=== PATIENT | female | born 1960 | race Caucasian/White ===

== ENCOUNTER 2022-06-10 08:04 | Emergency (ER) | payer BC, SELFPAY ==
--- NOTE | 2022-06-10 08:09 | ED.GENADULT ---
HPI - General Adult General Chief complaint: Extremity Problem,Nontraumatic Stated complaint: rt thigh pain Time Seen by Provider: 06/10/22 08:08 Source: patient Mode of arrival: ambulatory Limitations: no limitations History of Present Illness HPI narrative: 61-year-old female patient presents to the [facility] with complaints of right leg pain for the past week. Patient denies any recent falls or trauma to the leg that she is aware of. Patient states she has been taking ibuprofen and Tylenol for the pain. Patient rates her pain 9/10 at this time. Patient states this all mostly to the right upper thigh area. Patient states the pain is worse when she is trying to sleep at night Related Data Home Medications Medication Instructions Recorded Confirmed hydrochlorothiazide 12.5 mg capsule 12.5 mg PO DAILY 06/10/22 06/10/22 liraglutide (weight loss) 3 mg/0.5 3 mg subcut WEEKLY 06/10/22 06/10/22 mL (18 mg/3 mL) subcut pen injector (Saxenda) omeprazole 40 mg capsule,delayed 40 mg PO DAILY 06/10/22 06/10/22 release Allergies Allergy/AdvReac Type Severity Reaction Status Date / Time lisinopril Allergy Mild cough Verified 06/10/22 08:32 penicillin V Allergy Mild rash Verified 06/10/22 08:32 Review of Systems Review of Systems: CONSTITUTIONAL: Denies fever, chills, or sweats. EYES: Denies visual changes, redness, or discharge. ENT: Denies rhinorrhea, congestion, sore throat, or otalgia. CARDIOVASCULAR: Denies chest pain, palpitations, or edema. RESPIRATORY: Denies cough or dyspnea. GASTROINTESTINAL: Denies abdominal pain, nausea, vomiting, or diarrhea. GENITOURINARY: Denies dysuria or hematuria. SKIN: Denies rash or itching. MUSCULOSKELETAL: Denies back pain, joint pain, or myalgia. positive right upper leg pain x1 week NEUROLOGIC: Denies headache, numbness, or weakness. PSYCHIATRIC: Denies anxiety or depression. [facility] Past Medical History Medical History (Updated 06/10/22 @ 08:29 by JOAQUIN An) Barretts esophagus GERD (gastroesophageal reflux disease) Surgical History Surgical History (Updated 06/10/22 @ 08:11 by JOAQUIN An) H/O gastric bypass History of History of orthopedic surgery left knee scope Hx of cholecystectomy Family History Family History (Updated 06/10/22 @ 08:12 by JOAQUIN An) Other Diabetes mellitus Hypertension Comments At the time of my signature I agree with nursing past medical history, surgical, social, and family history. There is no relevant family history pertinent to the presenting complaint. Exam Narrative: GENERAL: Well-appearing, well-nourished, and in no acute distress. HEAD: Normocephalic, atraumatic. EYES: PERRLA and EOMI. ENT: Nares clear, no rhinorrhea or epistaxis. Mucous membranes moist. NECK: Supple. No lymphadenopathy CHEST: Clear to auscultation. No respiratory distress. HEART: Regular rate and rhythm. No murmur heard. Normal peripheral pulses. ABDOMEN: Soft, nontender, nondistended, normal active bowel sounds. EXTREMITIES: no edema, excellent range of motion to right lower extremity. BACK: Patient is able to ambulated without assistance. Pt is Standing in exam room in no obvouis distress. No surface trauma noted. No muscle tenderness to Palpation. No spasm or mass. patient does have pain that reproduces the right upper thigh pain when palpated the middle portion of the right buttocks around the sciatic nerve. No step-offs or deformity noted to the cervical, thoracic or lumbar spine to firm Palpation at the midline. No CVA tenderness to percussion. No saddle anesthesia. ROM: able to stand erect. Normal flexion, extension, Lateral bending and rotation without limitation or complaint of pain. SKIN: Warm, dry, no rash. NEURO: No focal deficits. Alert and oriented x3. Course Course Level of Care: Express Care Visit Vital Signs Vital signs: Vital Signs Temperature 36.9 C 06/10/22 08:24 Pulse Rate
[2022-06-10 08:24] VITALS: BP 113/60; PULSE 84; RESP 18; TEMP 36.9; O2SAT 100
== END 2022-06-10 08:34 | disposition home or self-care (01) ==
PROVIDERS: Emergency Provider Nurse Practitioner Family; PCP Internal Medicine
DX: M54.31 Sciatica, right side (principal); M54.16 Radiculopathy, lumbar region; K22.70 Barrett's esophagus without dysplasia; K21.9 Gastro-esophageal reflux disease without esophagitis
CPT/HCPCS: 99213; G0463

== ENCOUNTER 2023-02-18 13:50 | Emergency (ER) | payer BC, SELFPAY ==
[2023-02-18 14:39] VITALS: BP 110/63; PULSE 73; RESP 18; TEMP 36.3; O2SAT 99
--- NOTE | 2023-02-18 15:09 | ED.GENADULT ---
[facility] - General Adult General Chief complaint: Extremity Problem,Nontraumatic Stated complaint: back,hip,leg pain Time Seen by Provider: 02/18/23 15:09 Source: patient Mode of arrival: ambulatory Limitations: no limitations History of Present Illness HPI narrative: 62-year-old female presents with complaint of right-sided low back pain radiating to right buttock, hip for the past 2 weeks. Reports sometimes pain radiates all the way down right leg to her foot. Reports history of sciatica, this is the same symptoms. Taking [id number] medications and doing stretches from her physical therapist without relief of symptoms. No urinary symptoms. Denies loss of bowel or bladder. Denies weakness, numbness to lower extremities. Patient is ambulatory with steady gait. No recent injuries. All systems reviewed and negative except as noted above. Related Data Home Medications Medication Instructions Recorded Confirmed hydrochlorothiazide 12.5 mg capsule 12.5 mg PO DAILY 06/10/22 06/10/22 liraglutide (weight loss) 3 mg/0.5 3 mg subcut WEEKLY 06/10/22 06/10/22 mL (18 mg/3 mL) subcut pen injector (Saxenda) omeprazole 40 mg capsule,delayed 40 mg PO DAILY 06/10/22 06/10/22 release Allergies Allergy/AdvReac Type Severity Reaction Status Date / Time lisinopril Allergy Mild cough Verified 06/10/22 08:32 penicillin V Allergy Mild rash Verified 06/10/22 08:32 Review of Systems Review of Systems: CONSTITUTIONAL: Denies fever, chills, or sweats. EYES: Denies visual changes, redness, or discharge. ENT: Denies rhinorrhea, congestion, sore throat, or otalgia. CARDIOVASCULAR: Denies chest pain, palpitations, or edema. RESPIRATORY: Denies cough or dyspnea. GASTROINTESTINAL: Denies abdominal pain, nausea, vomiting, or diarrhea. GENITOURINARY: Denies dysuria or hematuria. SKIN: Denies rash or itching. MUSCULOSKELETAL: Reports right-sided low back pain with radiation to right but and hip. NEUROLOGIC: Denies headache, numbness, or weakness. PSYCHIATRIC: Denies anxiety or depression. All other systems reviewed are negative, except as documented in HPI. [facility] Past Medical History Medical History (Updated 02/19/23 @ 00:00 by Background Daemon) Barretts esophagus GERD (gastroesophageal reflux disease) Surgical History Surgical History (Updated 06/10/22 @ 08:11 by JOAQUIN An) H/O gastric bypass History of History of orthopedic surgery left knee scope Hx of cholecystectomy Family History Family History (Updated 06/10/22 @ 08:12 by JOAQUIN An) Other Diabetes mellitus Hypertension Comments At time of signature, agree with nursing past medical, surgical, social and family history. There is no relevant family history pertinent to the presenting complaint. Exam Narrative: GENERAL: This is a well-nourished, well-developed patient, in no apparent distress. HEAD: normocephalic, atraumatic. EYES: PERRL. Sclera clear/white. Vision is grossly intact. EARS: External ears normal NOSE: External nose normal NECK: Neck supple, non-tender without lymphadenopathy, masses or thyromegaly. CARDIOVASCULAR: Regular rate and rhythm without murmurs, gallops, or rubs. RESPIRATORY: Clear to auscultation. Breath sounds equal bilaterally. No wheezes, rales, or rhonchi. SKIN: warm, Dry, intact with no suspicious lesions or rash, good texture and turgor. NEURO: awake, alert, and oriented to person, place and time. There were no obvious focal neurologic abnormalities. EXTREMITIES: No joint tenderness, effusion, or edema noted. BAck: pain of palpation of R SI. Positive R straight leg raise. LE strength 5/5 bilaterally. Course Course Level of Care: Express Care Visit Vital Signs Vital signs: Vital Signs Temperature 36.3 C L 02/18/23 14:39 Pulse Rate 73 02/18/23 14:39 Respiratory Rate 18 02/18/23 14:39 Blood Pressure 110/63 02/18/23 14:39 Pulse Oximetry 99 02/18/23 14:39
== END 2023-02-18 15:28 | disposition home or self-care (01) ==
PROVIDERS: Emergency Provider Nurse Practitioner Family; PCP Internal Medicine
DX: M54.41 Lumbago with sciatica, right side (principal); N39.0 Urinary tract infection, site not specified; B96.20 Unspecified Escherichia coli [E. coli] as the cause of diseases classified elsewhere; K22.70 Barrett's esophagus without dysplasia; K21.9 Gastro-esophageal reflux disease without esophagitis; Z98.84 Bariatric surgery status
CPT/HCPCS: 81003; 87077; 87086; 87186; 99213; G0463

== ENCOUNTER 2023-06-17 13:10 | Emergency (ER) | payer BC, SELFPAY ==
[2023-06-17 13:23] VITALS: BP 100/72; PULSE 78; RESP 16; TEMP 36.6; O2SAT 100
--- NOTE | 2023-06-17 13:32 | ED.EAR ---
HPI - Ear Problem General Chief complaint: Ear Stated complaint: head cold, can't hear Source: patient Mode of arrival: ambulatory Limitations: no limitations History of Present Illness HPI Narrative: 62-year-old female presenting for complaint of decreased hearing from both ears for over 1 week. Denies ear pain. She endorses associated sinus congestion and drainage. She is taking antihistamines and nasal spray without relief. Denies tinnitus, dizziness, cough, shortness of breath, wheezing nausea vomiting, diarrhea, fevers or chills. MD Complaint: ear pain Related Data Home Medications Medication Instructions Recorded Confirmed hydrochlorothiazide 12.5 mg capsule 12.5 mg PO DAILY 06/10/22 06/10/22 liraglutide (weight loss) 3 mg/0.5 3 mg subcut WEEKLY 06/10/22 06/10/22 mL (18 mg/3 mL) subcut pen injector (Saxenda) omeprazole 40 mg capsule,delayed 40 mg PO DAILY 06/10/22 06/10/22 release estradiol 0.01% (0.1 mg/gram) vaginal 06/17/23 vaginal cream gabapentin 100 mg capsule mg 06/17/23 semaglutide (weight loss) 1.7 mg subcut 06/17/23 mg/0.75 mL subcutaneous pen injector (Wegovy) trazodone 150 mg tablet mg 06/17/23 triamterene 75 tablet 06/17/23 mg-hydrochlorothiazide 50 mg tablet zonisamide 100 mg capsule mg PO 06/17/23 Allergies Allergy/AdvReac Type Severity Reaction Status Date / Time lisinopril Allergy Mild cough Verified 06/17/23 13:18 penicillin V Allergy Mild rash Verified 06/17/23 13:18 Review of Systems Review of Systems: CONSTITUTIONAL: Denies malaise, chills, or fever. EYES: Denies visual changes, redness, or discharge. ENT: Denies rhinorrhea, congestion, sinus pain, and sore throat. Reports decreased hearing CARDIOVASCULAR: Denies chest pain, palpitations, or edema. RESPIRATORY: Denies cough or dyspnea. GASTROINTESTINAL: Denies abdominal pain, nausea, vomiting, diarrhea SKIN: Denies rash or itching. MUSCULOSKELETAL: Denies myalgia. NEUROLOGIC: Denies headache. All systems reviewed & are unremarkable except as noted in HPI and below PMFSH Past Medical History Medical History Barretts esophagus GERD (gastroesophageal reflux disease) Surgical History Surgical History H/O gastric bypass History of History of orthopedic surgery left knee scope Hx of cholecystectomy Family History Family History Other Diabetes mellitus Hypertension Comments At time of signature, agree with nursing past medical, surgical, social and family history. There is no relevant family history pertinent to the presenting complaint Exam Narrative: GENERAL: Well-appearing EYES: PERRLA, conjunctivae clear ENT: Nares clear. Mucous membranes moist. TMs pearly strickland with dull light reflex and clear effusion bilaterally; no tragal tenderness. Oropharynx not erythematous without lesions. NECK: Supple. No lymphadenopathy CHEST: Clear to auscultation, breath sounds equal. No wheezing, rhonchi, rales, or stridor. No respiratory distress, speaks in full sentences. HEART: Regular rate and rhythm. No murmur heard. SKIN: Warm, dry, no rash. NEURO: Alert and oriented x3. PSYCH: Normal mood and affect Course Course Emergency Course: Patient is aware of diagnosis, understands and agrees to treatment plan. Anticipatory guidance given. Patient agrees to follow-up as directed and is aware of reasons to seek care at the emergency department. Portions of this record may have been created with voice recognition software Level of Care: Express Care Visit Vital Signs Vital signs: Vital Signs Temperature 97.9 F 06/17/23 13:23 Pulse Rate 78 06/17/23 13:23 Respiratory Rate 16 06/17/23 13:23 Blood Pressure 100/72 06/17/23 13:23 Pulse Oximetry 100 06/17/23 13:23 Temperature 97.9 F 06/17/23 13:23 Puls
== END 2023-06-17 13:46 | disposition home or self-care (01) ==
PROVIDERS: Emergency Provider Nurse Practitioner Family; PCP Internal Medicine
DX: J06.9 Acute upper respiratory infection, unspecified (principal); K22.70 Barrett's esophagus without dysplasia; K21.9 Gastro-esophageal reflux disease without esophagitis; Z98.84 Bariatric surgery status
CPT/HCPCS: 99213; G0463